=== PATIENT | female | born 1965 | race Caucasian/White ===

== ENCOUNTER 2021-04-02 13:30 | Emergency (ER) | payer MEDICAID ==
[2021-04-02] MEDS ORDERED: PLEASE ENTER HEIGHT AND WEIGHT MC SCH (14:00)
[2021-04-02] MEDS ORDERED: LIDOCAINE-MPF 1%, 5ML INFIL ONE (14:00)
--- NOTE | 2021-04-02 14:37 | NUR ---
CALLED FOR PT IN LOBBY BUT NO RESPONSE.
--- NOTE | 2021-04-02 14:49 | NUR ---
CALLED FOR TRIAGE, NO ANSWER
--- NOTE | 2021-04-02 14:56 | NUR ---
CALLED FOR TRIAGE, NO ANSWER
[2021-04-02] MEDS ORDERED: PLEASE ENTER ALLERGIES MC SCH (15:00)
--- NOTE | 2021-04-02 16:27 | NUR ---
PT REAPPEARED IN LOBBY STATING SHE HAD BEEN OUTSIDE. CHART REINSTATED.
--- NOTE | 2021-04-02 17:01 | NUR ---
ATTEMPTED TO ROOM PATIENT. PT TOLD RN THAT SHE CALLED A RIDE AND DOES NOT WANT TO BE SEEN.
== END 2021-04-02 14:59 | disposition left against medical advice (07) ==
LOC: ED 14:50
DX: L02.01 Cutaneous abscess of face (principal); Z53.21 Procedure and treatment not carried out due to patient leaving prior to being seen by health care provider

== ENCOUNTER 2021-04-02 19:13 | Emergency (ER) | payer MEDICAID ==
[~2021-04-02] VITALS: Ht 172.7 cm; Wt 71.3 kg
[2021-04-02] MEDS ORDERED: LIDOCAINE 1%-EPI 1:100K, 20ML SQ ONE (19:30)
--- NOTE | 2021-04-02 22:11 | NUR ---
FEATHER SAWYER: PT FROM LOBBY TO ROOM AT THIS TIME.
[2021-04-02] MEDS ORDERED: LIDOCAINE 1%-EPI 1:100K, 20ML ONE (22:22)
--- NOTE | 2021-04-02 22:23 | NUR ---
PROVIDER AT BEDSIDE.
[2021-04-02] MEDS ORDERED: HYDROmorphone 1 MG/ML, 1ML INJ ONE (22:46)
--- NOTE | 2021-04-02 22:52 | NUR ---
REPORT GIVEN TO CHRISTIAN AVERY.
[2021-04-02] MEDS ORDERED: PROPOFOL 10 MG/ML, 20ML IVPush ONE (23:00)
[2021-04-02] MEDS ORDERED: HYDROmorphone 1 MG/ML, 1ML INJ IM ONE (23:00)
[2021-04-02] MEDS ORDERED: SODIUM CHLORIDE 0.9% 1,000ML IVBOLUS ONE (23:00)
[2021-04-02] MEDS ORDERED: HYDROmorphone 1 MG/ML, 1ML INJ IV ONE (23:00)
--- NOTE | 2021-04-02 23:20 | NUR ---
pt initially refusing any and all interventions, pt refused IV and labs, BRADLY Marcano spoke with pt and pt became agreeable, This RN entered room to attempt to get an EJ, pt was very anxious and nervous about it, IM dilaudid was given to help pt to tolerate pain, this RN punctured the skin and pt immediately became irritated and stated "take it out! i dont want to do this anymore!", this RN stopped and pulled out needle, BRADLY Marcano informed that pt once again refusing interventions, BRADLY Marcano was going to go talk with pt and get her ABX at the very minimum, pt signed AMA form.
[2021-04-02 23:21] VITALS: BP 134/59
[2021-04-03] MEDS ORDERED: CEPHALEXIN 500 MG CAPSULE PO ONE
[2021-04-03] MEDS ORDERED: SULFAMETH./TRIMETHOPRIM DS 800MG/160MG TABLET PO ONE
[2021-04-03] MEDS ORDERED: SULFAMETH./TRIMETHOPRIM DS 800MG/160MG TABLET ONE (00:01)
[2021-04-03] MEDS ORDERED: CEPHALEXIN 500 MG CAPSULE ONE (00:01)
== END 2021-04-03 00:14 | disposition left against medical advice (07) ==
LOC: ED 22:43
DX: L02.415 Cutaneous abscess of right lower limb (principal); F17.210 Nicotine dependence, cigarettes, uncomplicated; R00.0 Tachycardia, unspecified; F11.10 Opioid abuse, uncomplicated; Z72.9 Problem related to lifestyle, unspecified
CPT/HCPCS: 96372; 99284; 99406; J1170

== ENCOUNTER 2021-06-23 17:24 | Emergency (ER) | payer MEDICAID, OTHER ==
[~2021-06-23] VITALS: Ht 170.2 cm; Wt 68.0 kg
--- NOTE | 2021-06-23 17:26 | NUR ---
Pt report received from EMS and pt with emesis noted on arrival. 12 lead completed and scrum master completed.
[2021-06-23] MEDS ORDERED: SODIUM CHLORIDE 0.9% 1,000ML IVBOLUS ONE ×2 (18:00→19:30)
[2021-06-23] MEDS ORDERED: ONDANSETRON 2MG/ML, 2ML IVPush ONE (18:00)
[2021-06-23] MEDS ORDERED: ASPIRIN 81 MG TABLET CHEW PO ONE (18:00)
[2021-06-23] MEDS ORDERED: SODIUM CHLORIDE FLUSH 10ML SYR IVF ONE (18:00)
--- NOTE | 2021-06-23 18:15 | NUR ---
Pt lying on her side with eyes closed and emesis bag on floor.
[2021-06-23 18:21] LABS: BASOPHILS % (AUTO) 1 % (0-1); EOSINOPHILS % (AUTO) 2 % (1-7); LYMPHOCYTES % (AUTO) 25 % (22-44); MEAN CORPUSCULAR HEMOGLOBIN 22.3 pg (27.0-34.8); MEAN PLATELET VOLUME 7.2 fL (7.4-10.4); MONOCYTES % (AUTO) 14 % (2-9); NEUTROPHILS % (AUTO) 59 % (42-75); PLATELET COUNT 763 x10^3/uL (130-400); RED CELL DISTRIBUTION WIDTH 17.4 % (9.6-15.2)
[2021-06-23 18:33] LABS: ALANINE AMINOTRANSFERASE 25 U/L (12-78); ALBUMIN 2.6 g/dL (3.4-5.0); ANION GAP 7 mmol/L (5-15); CALCIUM 8.9 mg/dL (8.5-10.1); CHLORIDE 101 mmol/L (98-107); CREATININE 0.86 mg/dL (0.55-1.02)
[2021-06-23 18:38] LABS: ALKALINE PHOSPHATASE 98 U/L (45-117); BILIRUBIN,TOTAL 0.3 mg/dL (0.2-1.0); TOTAL PROTEIN 7.7 g/dL (6.4-8.2); TROPONIN I < 0.015 ng/mL (0.000-0.045)
[2021-06-23] MEDS ORDERED: ONDANSETRON 2MG/ML, 2ML ONE (18:40)
[2021-06-23] MEDS ORDERED: ASPIRIN 81 MG TABLET CHEW ONE (18:40)
--- NOTE | 2021-06-23 18:44 | NUR ---
ASSUMED CARE FROM MELISSA AVERY
--- NOTE | 2021-06-23 18:51 | NUR ---
IV was accidentally d/c'd prior to this moment and site is benign. Unable to give meds as scanned and bedside report given to GENA Street and he is aware of need for new IV and meds to be given.
[2021-06-23 18:59] LABS: ANISOCYTOSIS 1+; HYPOCHROMIA 1+; MICROCYTOSIS 1+; OVALOCYTES 1+
[2021-06-23 19:00] LABS: TEAR DROPS 1+
[2021-06-23 19:01] LABS: <PLATELET ESTIMATE> INCREASED; <PLT MORPHOLOGY> NORMAL PLT MORPH
[2021-06-23] MEDS ORDERED: LOPE2CAP PO (19:01)
[2021-06-23] MEDS ORDERED: BUPR2TAB SL (19:01)
[2021-06-23] MEDS ORDERED: DICY20TA4 PO (19:01)
[2021-06-23] MEDS ORDERED: ONDA4TAB13 SL (19:02)
[2021-06-23 21:41] VITALS: BP 123/72
== END 2021-06-23 22:48 ==
LOC: ED 20:45
DX: R07.89 Other chest pain (principal); E86.0 Dehydration; R11.2 Nausea with vomiting, unspecified; R19.7 Diarrhea, unspecified
CPT/HCPCS: 36415; 71045; 80053; 83605; 84484; 85025; 93005; 96361; 96374; 99285; J2405; J7030